=== PATIENT | female | born 2000 | race Caucasian/White ===

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

== ENCOUNTER 2018-07-11 09:45 | Emergency (ER) | payer OTHER ==
--- NOTE | 2018-07-11 10:30 | ER Document Report ---
ED GI/ - General Chief Complaint: Abdominal Pain Stated Complaint: STOMACH PAIN Time Seen by Provider: 07/11/18 10:26 Notes: Chief complaint: Epigastric pain History of complain:( obtained from----patient) 18 years old female woke up this morning with burning sensation in the epigastric region which was 10/10 in intensity by the time she came to the ER it has subsided to 3/10. By the time I spoke to her she states is 1/10. She ate [employer] last night before going to bed. Currently has no nausea vomiting fever chills or other constitutional symptoms denies any constipation. Denies any dysuria frequency urgency. She is not sure whether she is or not. Has had no similar incident before Onset: As described above Duration: Since this morning Severity: Mild Quality: Burning Context: Oily food Exacerbating factor and relieving factors: Unknown REVIEW OF SYSTEMS: CONSTITUTIONAL : Denies fever, chills, or sweats. Denies recent illness. EENT: Denies eye, ear, throat, or mouth pain or symptoms. Denies nasal or sinus congestion or discharge. Denies throat, tongue, or mouth swelling or difficulty swallowing. CARDIOVASCULAR: Denies chest pain. Denies palpitations or racing or irregular heart beat. Denies ankle edema. RESPIRATORY: Denies cough, cold, or chest congestion. Denies shortness of breath, difficulty breathing, or wheezing. GASTROINTESTINAL: Denies distention. Denies nausea, vomiting, or diarrhea. Denies blood in vomitus, stools, or per rectum. Denies black, tarry stools. Denies constipation. GENITOURINARY: Denies difficulty urinating, painful urination, burning, frequency, blood in urine, or discharge. FEMALE GENITOURINARY: Denies vaginal bleeding, heavy or abnormal periods, irregular periods. Denies vaginal discharge or odor. MUSCULOSKELETAL: Denies back or neck pain or stiffness. Denies joint pain or swelling. SKIN: Denies rash, lesions or sores. HEMATOLOGIC : Denies easy bruising or bleeding. LYMPHATIC: Denies swollen, enlarged glands. NEUROLOGICAL: Denies confusion or altered mental status. Denies passing out or loss of consciousness. Denies dizziness or lightheadedness. Denies headache. Denies weakness or paralysis or loss of use of either side. Denies problems with gait or speech. Denies sensory loss, numbness, or tingling. Denies seizures. PSYCHIATRIC: Denies anxiety or stress. Denies depression, suicidal ideation, or homicidal ideation. ALL OTHER SYSTEMS REVIEWED AND NEGATIVE. PHYSICAL EXAMINATION: GENERAL: Well-appearing, well-nourished and in no acute distress. HEAD: Atraumatic, normocephalic. EYES: Pupils equal round and reactive to light, extraocular movements intact, conjunctiva are normal. ENT: Nares patent, oropharynx clear without exudates. Moist mucous membranes. NECK: Normal range of motion, supple without lymphadenopathy LUNGS: Breath sounds clear to auscultation bilaterally and equal. No wheezes rales or rhonchi. HEART: Regular rate and rhythm without murmurs ABDOMEN: Soft, nontender, nondistended abdomen. No guarding, no rebound. No masses appreciated. No tenderness over the right upper quadrant noted Examination of genitals-deferred Musculoskeletal: Normal range of motion, no pitting or edema. No cyanosis. NEUROLOGICAL: Cranial nerves grossly intact. Normal speech, normal gait. Normal sensory, motor exams PSYCH: Normal mood, normal affect. SKIN: Warm, Dry, normal turgor, no rashes or lesions noted. Dictation was performed using [employer] voice recognition software TRAVEL OUTSIDE OF THE [place] IN LAST 30 DAYS: No - HPI Notes: 07/11/18 10:28 Dictated - Related Data Allergies/Adverse Reactions: No Known Allergies Allergy (Unverified 03/31/17 07:33) Past Medical History - General Information source: Patient - Social History Smoking Status: Never Smoker Chew tobacco use (# tins/day): No Frequency of alcohol use: None Drug Abuse: None Lives with: Family Family History: Reviewed & Not Pertinent Patient has suicidal ideation: No Patient has homicidal ideation: No Renal/ Medical History: Denies: Hx Peritoneal Dialysis Psychiatric Medical History: Reports: Hx Depression - Immunizations Hx Diphtheria, Pertussis, Tetanus Vaccination: Yes Review of Systems - Review of Systems Notes: Dictated Physical Exam - Vital signs Vitals: Temp Pulse Resp BP Pulse Ox 98.1 F 76 18 128/67 H 98 07/11/18 09:54 07/11/18 09:54 07/11/18 09:54 07/11/18 09:54 07/11/18 09:54 - Notes Notes: Dictated Course - Vital Signs Vital signs: Temp Pulse Resp BP Pulse Ox 98.1 F 76 18 128/67 H 98 07/11/18 09:54 07/11/18 09:54 07/11/18 09:54 07/11/18 09:54 07/11/18 09:54 - Laboratory Laboratory results interpreted by me: 07/11/18 10:26 Urine Protein 30 H Urine Ketones 80 H Urine Urobilinogen 2.0 H Urine HCG, Qual POSITIVE H Discharge - Discharge Clinical Impression: GERD (gastroesophageal reflux disease) Qualifiers: Esophagitis presence: without esophagitis Qualified Code(s): K21.9 - Gastro- esophageal reflux disease without esophagitis Qualifiers: Weeks of gestation: less than 8 weeks Qualified Code(s): Z3A.01 - Less than 8 weeks gestation of Condition: Fair Disposition: HOME, SELF-CARE Instructions: Abdominal Pain ([facility]), Reflux Disease (GERD) ([facility]), ([facility] )
[2018-07-11 11:18] LABS: APPEARANCE,URINE SLIGHTLY-CLOUDY; BILIRUBIN,URINE NEGATIVE (NEGATIVE); COLOR,URINE YELLOW; GLUCOSE, URINE NEGATIVE (NEGATIVE); KETONES,URINE 80 mg/dL (NEGATIVE); LEUKOCYTE ESTERASE,URINE NEGATIVE (NEGATIVE); NITRITE,URINE NEGATIVE (NEGATIVE); PROTEIN,URINE 30 mg/dL (NEGATIVE); URINE SPECIFIC GRAVITY 1.031
[2018-07-11 11:32] VITALS: BP 115/79
== END 2018-07-11 11:43 | disposition home or self-care (01) ==
LOC: ER 09:45
DX: O26.91 Pregnancy related conditions, unspecified, first trimester (principal); K21.9 Gastro-esophageal reflux disease without esophagitis; R10.13 Epigastric pain; Z3A.01 Less than 8 weeks gestation of pregnancy
CPT/HCPCS: 36415; 81001; 81025; 84702; 99284

== ENCOUNTER → 2018-08-23 | Outpatient (CLI) | payer OTHER, MEDICAID | LOC: OD 11:22 | PROVIDERS: ATTEND Midwife | DX: Z36.0 Encounter for antenatal screening for chromosomal anomalies (principal) | CPT/HCPCS: 36415; 81241 ==

== ENCOUNTER 2018-12-24 14:50 | Emergency (ER) | payer OTHER, MEDICAID ==
[2018-12-24] MEDS ORDERED: NORMAL SALINE 1000 ML 1,000 ML IV ONE (15:41)
--- NOTE | 2018-12-24 15:43 | ER Document Report ---
ED Medical Screen (RME) - General Chief Complaint: Palpitations Stated Complaint: LIGHT HEADED, FAST HEART BEAT Time Seen by Provider: 12/24/18 15:36 Primary Care Provider: HALI GOLD CNM [Primary Care Provider] - Follow up as needed TRAVEL OUTSIDE OF THE [place] IN LAST 30 DAYS: No - HPI Patient complains to provider of: Shortness of breath Notes: 12/24/18 15:41 Patient is a 18-year-old female who is currently approximately 28 weeks , resenting to the emergency department complaining of shortness of breath with the feeling that she cannot take a deep enough breath, she denies any pain with deep breathing or chest pain, but also feels lightheaded and as though her heart is racing Patient's EKG notes tachycardia at a rate of 106, she has no calf tenderness on palpation, negative Homans sign, she does report having upper respiratory symptoms with a productive cough for the past week, she is a non-smoker 12/24/18 15:43 RAPID MEDICAL EVALUATION DISCLOSURE I have seen this patient as part of a Rapid Medical Evaluation and, if applicable, placed any initially appropriate orders. The patient will be seen and fully evaluated, including a full history and physical exam, by a provider (in Main ED or Fast Track) when a room becomes available. - Related Data Allergies/Adverse Reactions: No Known Allergies Allergy (Verified 12/24/18 15:33) Past Medical History Renal/ Medical History: Denies: Hx Peritoneal Dialysis Psychiatric Medical History: Reports: Hx Depression - Immunizations Hx Diphtheria, Pertussis, Tetanus Vaccination: Yes Physical Exam - Vital signs Vitals: Temp Pulse Resp BP Pulse Ox 98.2 F 111 H 16 132/80 H 99 12/24/18 14:54 12/24/18 14:54 12/24/18 14:54 12/24/18 14:54 12/24/18 14:54 Course - Vital Signs Vital signs: Temp Pulse Resp BP Pulse Ox 98.2 F 111 H 16 132/80 H 99 12/24/18 14:54 12/24/18 14:54 12/24/18 14:54 12/24/18 14:54 12/24/18 14:54 Doctor's Discharge - Discharge Referrals: HALI GOLD CNM [Primary Care Provider] - Follow up as needed
--- NOTE | 2018-12-24 16:00 | EKG REPORT ---
SEVERITY:- BORDERLINE ECG - SINUS TACHYCARDIA BORDERLINE T ABNORMALITIES, ANTERIOR LEADS : Confirmed by: Carlos David MD 24-Dec-2018 15:59:23
--- NOTE | 2018-12-24 16:31 | RADIOLOGY REPORT (SQ) ---
EXAM DESCRIPTION: CHEST 2 VIEWS COMPLETED DATE/TIME: 12/24/2018 4:05 pm REASON FOR STUDY: sob COMPARISON: None. EXAM PARAMETERS: NUMBER OF VIEWS: two views TECHNIQUE: Digital Frontal and Lateral radiographic views of the chest acquired. RADIATION DOSE: NA LIMITATIONS: none FINDINGS: LUNGS AND PLEURA: No focal airspace disease, pleural effusion or pneumothorax. MEDIASTINUM AND HILAR STRUCTURES: No masses or contour abnormalities. HEART AND VASCULAR STRUCTURES: Normal heart size. BONES: No acute findings. HARDWARE: 5 mm circular metallic density overlies the posterior left hemithorax, etiology uncertain. OTHER: No other significant finding. IMPRESSION: 5 mm circular metallic density overlies the posterior left hemithorax, etiology uncertai n. No pneumothorax or other additional evidence of acute cardiopulmonary process. TECHNICAL DOCUMENTATION: JOB ID: [id number] [employer]- All Rights Reserved Reading location - IP/workstation name: [email or web address]
[2018-12-24 16:48] LABS: HEMOGLOBIN 12.5 g/dL (12.0-15.5); MEAN CORPUSCULAR HEMOGLOBIN 28.9 pg (27.0-33.4); MEAN CORPUSCULAR HGB CONC 33.8 g/dL (32.0-36.0); MEAN CORPUSCULAR VOLUME 86 fl (80-97); PLATELET COUNT 242 10^3/uL (150-450); RED BLOOD COUNT 4.33 10^6/uL (3.72-5.28); RED CELL DISTRIBUTION WIDTH 14.1 % (11.5-14.0); WHITE BLOOD COUNT 9.5 10^3/uL (4.0-10.5)
[2018-12-24 17:01] LABS: ALANINE AMINOTRANSFERASE 50 U/L (9-52); ALBUMIN 4.2 g/dL (3.5-5.0); ALKALINE PHOSPHATASE 125 U/L (38-126); ANION GAP 13 (5-19); ASPARTATE AMINO TRANSFERASE 26 U/L (14-36); BILIRUBIN,DIRECT 0.2 mg/dL (0.0-0.4); BILIRUBIN,TOTAL 0.7 mg/dL (0.2-1.3); BLOOD UREA NITROGEN 9 mg/dL (7-20); CARBON DIOXIDE 20 mmol/L (22-30); CHLORIDE 103 mmol/L (98-107); GLUCOSE 78 mg/dL (75-110); POTASSIUM 4.3 mmol/L (3.6-5.0); TOTAL PROTEIN 7.2 g/dL (6.3-8.2)
[2018-12-24 17:07] LABS: ABSOLUTE LYMPHOCYTES# (MANUAL) 0.5 10^3/uL (0.5-4.7); ABSOLUTE MONOCYTES # (MANUAL) 1.3 10^3/uL (0.1-1.4); ABSOLUTE NEUTROPHILS# (MANUAL) 7.5 10^3/uL (1.7-8.2); BAND NEUTROPHILS % (MANUAL) 2 % (3-5); BASOPHILS % (MANUAL) 0 % (0-2); EOSINOPHILS % (MANUAL) 2 % (0-6); LYMPHOCYTES % (MANUAL) 5 % (13-45); MONOCYTES % (MANUAL) 14 % (3-13); SEGMENTED NEUTROPHILS % (MAN) 77 % (42-78); TOTAL CELLS COUNTED 100
[2018-12-24 17:08] LABS: ANISOCYTOSIS SLIGHT; PLATELET COMMENT ADEQUATE; PLATELET LARGE PRESENT; TOXIC VACUOLATION PRESENT
[2018-12-24 17:10] LABS: POLYCHROMASIA SLIGHT
--- NOTE | 2018-12-24 21:12 | ER Document Report ---
ED Cardiac - General Chief Complaint: Palpitations Stated Complaint: LIGHT HEADED, FAST HEART BEAT Time Seen by Provider: 12/24/18 15:36 Primary Care Provider: HALI GOLD CNM [CERTIFIED NURSE TEMPERATURE INSPECTOR] - Follow up as needed Mode of Arrival: Ambulatory Information source: Patient TRAVEL OUTSIDE OF THE [place] IN LAST 30 DAYS: No - HPI Patient complains to provider of: Other - Shortness of breath, 28 weeks which started to worsen today, no appreciable chest pain, no abdominal pain, denies diarrhea constipation dysuria rashes or other symptoms. - Related Data Allergies/Adverse Reactions: No Known Allergies Allergy (Verified 12/24/18 15:33) Past Medical History - General Information source: Patient - Social History Smoking Status: Never Smoker Frequency of alcohol use: None Drug Abuse: None Family History: Reviewed & Not Pertinent Patient has suicidal ideation: No Patient has homicidal ideation: No Renal/ Medical History: Denies: Hx Peritoneal Dialysis Psychiatric Medical History: Reports: Hx Depression - Immunizations Hx Diphtheria, Pertussis, Tetanus Vaccination: Yes Review of Systems - Review of Systems -: Yes All other systems reviewed and negative Physical Exam - Vital signs Vitals: Temp Pulse Resp BP Pulse Ox 98.2 F 111 H 16 132/80 H 99 12/24/18 14:54 12/24/18 14:54 12/24/18 14:54 12/24/18 14:54 12/24/18 14:54 - General General appearance: Appears well In distress: None - HEENT Head: Normocephalic Eyes: Normal Conjunctiva: Normal Cornea: Normal Extraocular movements intact: Yes Eyelashes: Normal Pupils: PERRL - Respiratory Respiratory status: No respiratory distress Chest status: Nontender Breath sounds: Normal Chest palpation: Normal - Cardiovascular Rhythm: Regular Heart sounds: Normal auscultation Murmur: No - Abdominal Inspection: Gravid female, Obese Distension: No distension Tenderness: Nontender - Back Back: Normal, Nontender - Extremities General upper extremity: Normal inspection, Nontender, Normal color, Normal ROM, Normal temperature General lower extremity: Normal inspection, Nontender, Normal color, Normal ROM, Normal temperature, Normal weight bearing. No: Jeremiah's sign - Neurological Neuro grossly intact: Yes Cognition: Normal Orientation: AAOx4 Sean Coma Scale Eye Opening: Spontaneous Sean Coma Scale Verbal: Oriented [place] Coma Scale Motor: Obeys Commands Sean Coma Scale Total: 15 Speech: Normal Motor strength normal: LUE, RUE, LLE, RLE Sensory: Normal - Psychological Associated symptoms: Normal affect, Normal mood Course - Re-evaluation Re-evalutation: 12/25/18 04:21 18-year-old female who is currently 28 weeks that presents for shortness of breath. Through triage she underwent labs as well as x-ray of the chest which is not demonstrate any obvious cause for her underlying shortness of breath, she is at risk for potential pulmonary embolism given that she is persistently tachycardic without any other obvious symptoms to suggest another cause. We will plan for CTA of the chest. CT of the chest does not demonstrate any acute pulmonary embolism. Believe that the patient is likely safe for discharge with return precautions and expectant management at this time as I do not believe that she has more serious underlying cause of her shortness of breath and fatigue such as but not limited to pulmonary embolism, CVA, [place], heart failure. - Vital Signs Vital signs: Temp Pulse Resp BP Pulse Ox 98.2 F 111 H 22 H 128/81 H 98 12/24/18 14:54 12/24/18 14:54 12/24/18 22:12 12/24/18 22:12 12/24/18 22:12 - Laboratory Result Diagrams: 12/24/18 16:24 12/24/18 16:24 Laboratory results interpreted by me: 12/24/18 12/24/18 12/24/18 16:24 16:24 16:24 RDW 14.1 H Band Neutrophils % 2 L Lymphocytes % (Manual) 5 L Monocytes % (Manual) 14 H D-Dimer 1.38 H Sodium 136.0 L Carbon Dioxide 20 L Creatinine 0.47 L Discharge - Discharge Clinical Impression: Shortness of breath URI (upper respiratory infection) Qualifiers: URI type: unspecified URI Qualified Code(s): J06.9 - Acute upper respiratory infection, unspecified Qualifiers: Weeks of gestation: 28 weeks Qualified Code(s): Z3A.28 - 28 weeks gestation of Condition: Good Disposition: HOME, SELF-CARE Instructions: Upper Respiratory Illness ([facility]), Viral Syndrome ([facility]) Additional Instructions: You were seen today in the emergency department for your shortness of breath. You had evaluation including a physical exam, blood tests, a CT scan of your lungs to see if there were any blood clots. There are no blood clots in your lungs. There is been no damage to your heart identified. You had a normal chest x-ray. I think that you are feeling sick from a developing respiratory infection. Follow-up with your primary wind energy technician in the coming week. Referrals: HALI GOLD CNM [CERTIFIED NURSE TEMPERATURE INSPECTOR] - Follow up as needed
--- NOTE | 2018-12-24 21:27 | RADIOLOGY REPORT (SQ) ---
CT CHEST ANGIOGRAPHY WITHOUT THEN WITH IV CONTRAST HISTORY: Shortness of breath. COMPARISON: None. TECHNIQUE: CT angiogram of the chest with IV contrast. 3-D MIP images were obtained in coronal and sagittal reconstructions. This exam was performed according to our departmental dose-optimization program, which includes automated exposure control, adjustment of the mA and/or kV according to patient size and/or use of iterative reconstruction technique. FINDINGS: No acute pulmonary embolism is seen in the main or segmental branches. There is a subcentimeter hypodense nodule in the right thyroid lobe. No mediastinal or axillary adenopathy. The heart size is normal without pericardial effusion. The lungs are clear without pleural effusions or pneumothorax. The visualized upper abdomen demonstrates no acute findings. No acute osseous findings are appreciated. IMPRESSION: 1. No acute pulmonary embolism. 2. Clear lungs. 3. Subcentimeter incidental thyroid nodule. No follow-up imaging is recommended. (Reference: J Am Lisa Radiol. 2015 b;12(2): 143-50)
[2018-12-24 22:28] VITALS: BP 128/81
== END 2018-12-24 22:28 | disposition home or self-care (01) ==
LOC: ER 14:50
DX: O98.813 Other maternal infectious and parasitic diseases complicating pregnancy, third trimester (principal); J06.9 Acute upper respiratory infection, unspecified; R00.2 Palpitations; R42 Dizziness and giddiness; R06.02 Shortness of breath; Z3A.28 28 weeks gestation of pregnancy
CPT/HCPCS: 93005; 99285; 96360; 96361; 36415; 87040; 85025; 80053; 85379; 71046; 71275; 93010; J7030

== ENCOUNTER 2019-02-12 19:58 | Outpatient (CLI) | payer OTHER, MEDICAID ==
[2019-02-12 20:56] LABS: APPEARANCE,URINE TURBID; BILIRUBIN,URINE NEGATIVE (NEGATIVE); COLOR,URINE YELLOW; GLUCOSE, URINE 50 mg/dL (NEGATIVE); KETONES,URINE NEGATIVE (NEGATIVE); LEUKOCYTE ESTERASE,URINE NEGATIVE (NEGATIVE); NITRITE,URINE NEGATIVE (NEGATIVE); PROTEIN,URINE NEGATIVE (NEGATIVE); URINE SPECIFIC GRAVITY 1.018; UROBILINOGEN,URINE NEGATIVE mg/dL (<2.0)
[2019-02-12 21:07] LABS: URINE AMPHETAMINES SCREEN NEGATIVE; URINE BARBITURATES SCREEN NEGATIVE; URINE BENZODIAZEPINES SCREEN NEGATIVE; URINE COCAINE SCREEN NEGATIVE; URINE MARIJUANA (THC) SCREEN NEGATIVE; URINE METHADONE SCREEN NEGATIVE; URINE PHENCYCLIDINE SCREEN NEGATIVE
== END 2019-02-12 21:00 | disposition home or self-care (01) ==
LOC: LC 19:58
PROVIDERS: ATTEND Obstetrics & Gynecology
PROC: 4A1HXCZ Monitoring of Products of Conception, Cardiac Rate, External Approach (ICD-10-PCS; principal; 2019-02-12)
DX: O47.03 False labor before 37 completed weeks of gestation, third trimester (principal); Z3A.36 36 weeks gestation of pregnancy
CPT/HCPCS: 80307; 81001

== ENCOUNTER 2019-02-25 21:57 | Outpatient (CLI) | payer OTHER, MEDICAID ==
[2019-02-25 22:45] LABS: APPEARANCE,URINE CLEAR; BILIRUBIN,URINE NEGATIVE (NEGATIVE); COLOR,URINE YELLOW; GLUCOSE, URINE NEGATIVE (NEGATIVE); KETONES,URINE NEGATIVE (NEGATIVE); LEUKOCYTE ESTERASE,URINE NEGATIVE (NEGATIVE); NITRITE,URINE NEGATIVE (NEGATIVE); PROTEIN,URINE NEGATIVE (NEGATIVE); URINE SPECIFIC GRAVITY 1.011; UROBILINOGEN,URINE NEGATIVE mg/dL (<2.0)
[2019-02-25 23:14] LABS: URINE AMPHETAMINES SCREEN NEGATIVE; URINE BARBITURATES SCREEN NEGATIVE; URINE BENZODIAZEPINES SCREEN NEGATIVE; URINE COCAINE SCREEN NEGATIVE; URINE MARIJUANA (THC) SCREEN NEGATIVE; URINE METHADONE SCREEN NEGATIVE; URINE PHENCYCLIDINE SCREEN NEGATIVE
--- NOTE | 2019-02-25 23:49 | Non Stress Test Report ---
Non Stress Test Datetime Report Generated by CPN: 02/25/2019 23:49 DEMOGRAPHIC Test Number: 2 EGA NST: 38.0 EGA NST: 36.1 INDICATION Indication for Study: Ordered by Provider Indication for Study: Ordered by Provider MONITORING Monitor Explained: Monitor Explained; Test Explained; Patient Verbalized Understanding Time on Monitor: 02/25/2019 22:15 Time on Monitor: 02/12/2019 20:26 Time off Monitor: 02/25/2019 22:51 Time off Monitor: 02/12/2019 21:13 NST Duration: 36 NST Duration: 47 NST INTERVENTIONS NST Interventions: PO Hydration; Reposition Patient NST Interventions: None Physician Notified NST: Dr. Almeida Physician Notified NST: Dr. Quinonez BABY A: [id number] BABY A Movement : Present Movement : Present Contraction Frequency : 1-3 Contraction Frequency : 2-3 FHR Baseline : 125 FHR Baseline : 125 Accelerations : 15X15 Accelerations : 15X15 Decelerations : None Decelerations : None Variability : Moderate 6-25bpm Variability : Minimal - Undetectable to <=5bpm NST Review: Meets Criteria for Reactive NST NST Review: Meets Criteria for Reactive NST NST Review and Verified By : BRAD Vang NST Review and Verified By : Valente Faustin RN NST Results: Reactive NST Results: Reactive NST REPORT Report Trigger: Send Report
[2019-02-26] MEDS ORDERED: HYDROXYZINE PAMOATE 50 MG CAPSULE PO ONE (00:03)
[2019-02-26] MEDS ORDERED: HYDROXYZINE PAMOATE 50 MG CAPSULE ONE (00:05)
== END 2019-02-26 00:20 | disposition home or self-care (01) ==
LOC: LC 21:57
PROVIDERS: ATTEND Obstetrics & Gynecology
PROC: 4A1HXCZ Monitoring of Products of Conception, Cardiac Rate, External Approach (ICD-10-PCS; principal; 2019-02-25)
DX: O47.1 False labor at or after 37 completed weeks of gestation (principal); Z3A.38 38 weeks gestation of pregnancy
CPT/HCPCS: 59025; 80307; 81005

== ENCOUNTER 2019-03-17 07:29 | Outpatient (CLI) | payer OTHER, MEDICAID ==
--- NOTE | 2019-03-17 08:15 | Non Stress Test Report ---
Non Stress Test Datetime Report Generated by CPN: 03/17/2019 08:15 DEMOGRAPHIC Test Number: 4 EGA NST: 40.6 INDICATION Indication for Study: Ordered by Provider MONITORING Monitor Explained: Monitor Explained; Test Explained; Patient Verbalized Understanding Time on Monitor: 03/17/2019 07:43 Time off Monitor: 03/17/2019 08:05 NST Duration: 22 NST INTERVENTIONS NST Interventions: PO Hydration; Reposition Patient Physician Notified NST: Blossom Masterson CNM BABY A: [id number] BABY A Movement : Present Contraction Frequency : 4-5 FHR Baseline : 135 Accelerations : 15X15 Decelerations : None Variability : Moderate 6-25bpm NST Review: Meets Criteria for Reactive NST NST Review and Verified By : Nikole ATKINS RN NST Results: Reactive NST REPORT Report Trigger: Send Report
[2019-03-17 08:29] LABS: APPEARANCE,URINE CLOUDY; BILIRUBIN,URINE NEGATIVE (NEGATIVE); COLOR,URINE YELLOW; GLUCOSE, URINE NEGATIVE (NEGATIVE); KETONES,URINE TRACE mg/dL (NEGATIVE); LEUKOCYTE ESTERASE,URINE TRACE (NEGATIVE); NITRITE,URINE NEGATIVE (NEGATIVE); PROTEIN,URINE 100 mg/dL (NEGATIVE); URINE SPECIFIC GRAVITY 1.025; UROBILINOGEN,URINE NEGATIVE mg/dL (<2.0)
[2019-03-17 08:47] LABS: URINE AMPHETAMINES SCREEN NEGATIVE; URINE BARBITURATES SCREEN NEGATIVE; URINE BENZODIAZEPINES SCREEN NEGATIVE; URINE COCAINE SCREEN NEGATIVE; URINE MARIJUANA (THC) SCREEN NEGATIVE; URINE METHADONE SCREEN NEGATIVE; URINE PHENCYCLIDINE SCREEN NEGATIVE
[2019-03-17] MEDS ORDERED: RINGERS SOLUTION,LACTATED 1,000 ML IV ONE (18:34)
[2019-03-17] MEDS ORDERED: RINGERS SOLUTION,LACTATED 1,000 ML IV PRN (18:34)
[2019-03-17] MEDS ORDERED: PENICILLIN G POTASSIUM 5,000,000 UNIT in DEXTROSE 5%-WATER 100 ML IV ONE (18:34)
[2019-03-17] MEDS ORDERED: DINOPROSTONE 10 MG VAGINAL INSERT.SR PV PRN (18:36)
[2019-03-17 19:10] LABS: URINE AMPHETAMINES SCREEN NEGATIVE; URINE BARBITURATES SCREEN NEGATIVE; URINE BENZODIAZEPINES SCREEN NEGATIVE; URINE COCAINE SCREEN NEGATIVE; URINE MARIJUANA (THC) SCREEN NEGATIVE; URINE METHADONE SCREEN NEGATIVE; URINE PHENCYCLIDINE SCREEN NEGATIVE
[2019-03-17 19:17] LABS: ABSOLUTE LYMPHOCYTES (AUTO) 1.4 10^3/uL (0.5-4.7); ABSOLUTE MONOCYTES (AUTO) 0.7 10^3/uL (0.1-1.4); ABSOLUTE NEUT (AUTO) 12.9 10^3/uL (1.7-8.2); BASOPHILS % (AUTO) 0.3 % (0-2); EOSINOPHILS % (AUTO) 0.2 % (0-6); HEMATOCRIT 35.9 % (36.0-47.0); HEMOGLOBIN 12.1 g/dL (12.0-15.5); LYMPHOCYTES % (AUTO) 9.1 % (13-45); MEAN CORPUSCULAR HEMOGLOBIN 28.1 pg (27.0-33.4); MEAN CORPUSCULAR HGB CONC 33.7 g/dL (32.0-36.0); MEAN CORPUSCULAR VOLUME 83 fl (80-97); MONOCYTES % (AUTO) 4.6 % (3-13); PLATELET COUNT 225 10^3/uL (150-450); RED BLOOD COUNT 4.31 10^6/uL (3.72-5.28); RED CELL DISTRIBUTION WIDTH 19.6 % (11.5-14.0); SEGMENTED NEUTROPHILS % (AUTO) 85.8 % (42-78); TOTAL CELLS COUNTED % (AUTO) 100 %
[2019-03-17] MEDS ORDERED: PENICILLIN G POTASSIUM 2,500,000 UNIT in DEXTROSE 5%-WATER 50 ML IV SCH (22:36)
[2019-03-18] MEDS ORDERED: OXYTOCIN/NORMAL SALINE 20 UNIT/1,000 ML RTUINJ IV PRN (08:00)
== END 2019-03-17 09:46 | disposition home or self-care (01) ==
LOC: LC 07:29
PROVIDERS: ATTEND Obstetrics & Gynecology
PROC: 4A1HXCZ Monitoring of Products of Conception, Cardiac Rate, External Approach (ICD-10-PCS; principal; 2019-03-17)
DX: O47.1 False labor at or after 37 completed weeks of gestation (principal); O48.0 Post-term pregnancy; Z3A.40 40 weeks gestation of pregnancy
CPT/HCPCS: 36415; 59025; 80307; 81005; 85025; 86592

== ENCOUNTER 2019-03-17 18:06 | Inpatient (IN) | payer OTHER, MEDICAID ==
[2019-03-17] MEDS ORDERED: PENICILLIN G-K 5 MILLION UNIT VIAL ONE ×2 (18:48→22:36)
[2019-03-17] MEDS ORDERED: PENICILLIN G POTASSIUM 5,000,000 UNIT in DEXTROSE 5%-WATER 100 ML IV ONE (19:39)
[2019-03-17] MEDS ORDERED: RINGERS SOLUTION,LACTATED 1,000 ML IV ONE (19:39)
[2019-03-17] MEDS: RINGERS SOLUTION,LACTATED 1,000 ML IV PRN ×2 (19:51→23:00)
[2019-03-17] MEDS ORDERED: MISOPROSTOL 0.2 MG TABLET ONE (19:59)
[2019-03-17] MEDS ORDERED: LIDOCAINE 1% INJ-PF (10 MG/ML) 30 ML SDV ONE (20:00)
[2019-03-17] MEDS ORDERED: OXYTOCIN/NORMAL SALINE 20 UNIT/1,000 ML RTUINJ ONE (20:00)
[2019-03-17] MEDS ORDERED: BUPIVACAINE HCL 0.25 % INJ/PF (2.5 MG/1 ML) 30 ML VIAL ONE ×2 (20:48→21:49)
[2019-03-17] MEDS ORDERED: EPHEDRINE SULFATE INJ 50 MG/1 ML AMPULE ONE (20:48)
[2019-03-17] MEDS ORDERED: FENTANYL/BUPIVACAINE/NS/PF 0 MCG/0 ML RTUINJ EPI ONE (20:48)
[2019-03-17] MEDS ORDERED: BUPIVACAINE HCL/NS/PF 0 MG/0 ML RTUINJ EPI ONE (21:49)
[2019-03-17] MEDS ORDERED: FENTANYL/BUPIVACAINE/NS/PF 300 MCG/150 ML RTUINJ EPI ONE (21:49)
--- NOTE | 2019-03-17 22:27 | Admission Physical ---
Datetime Report Generated by CPN: 03/17/2019 22:27 CURRENT ADMISSION Chief Complaint: Uterine Contractions; Suspected Ruptured Membranes Indication for Induction: Not Applicable Admit Impression : Term, Intrauterine Admit Plan: Admit to Unit ALLERGIES Medication Allergies: No Medication Allergies: No Known Allergies (03/17/2019) Latex: No Latex Allergies OBSTETRICAL HISTORY EDC: 03/11/2019 00:00 : 1 Para: 0 Term: 0 : 0 SAB: 0 IAB: 0 Ectopic: 0 Livin Cesareans: 0 VBACs: 0 Multiple Births: 0 Gestational Diabetes: Yes Rh Sensitization: No Incompetent Cervix: No EFFIE: No Infertility: No ART Treatment: No Uterine Anomaly: No IUGR: No Hx Previous C/S: No Macrosomia: No Hx Loss/Stillborn: No PIH: No Hx : No Placenta Previa/Abruption: No Depression/PP Depression: No PTL/PROM: No Post Hemorrhage: No Current Procedures: Ultrasound Obstetrical History Comments: G1-current GDM A1 SEE RECORDS Alcohol: No Marijuana : No Cocaine: No Other Illicit Drugs: No Cigarettes: Never Smoker. [id number] MEDICAL HISTORY Diabetes: Yes Diabetes Type: Gestational Diabetes Blood Transfusion: No Pulmonary Disease (Asthma, TB): No Breast Disease: No Hypertension: No Financial Investment Manager Surgery: No Heart Disease: No Hosp/Surgery: No Autoimmune Disorder: No Anesthetic Complications: No Kidney Disease: No Abnormal Pap Smear: No Neuro/Epilepsy: No Psychiatric Disorders: No Other Medical Diseases: No Hepatitis/Liver Disease: No Significant Family History: No Varicosities/Phlebitis: No Trauma/Violence : No Thyroid Dysfunction: No Medical History Comments: PCOS INFECTIOUS HISTORY Gonorrhea: No Genital Herpes: No Chlamydia: No Tuberculosis: No Syphilis: No Hepatitis: No HIV/AIDS Exposure: No Rash or Viral Illness: No HPV: No PHYSICAL EXAM General: Normal HEENT: Normal Neurologic: Normal Thyroid: Normal Heart: Normal Lungs: Normal Breast: Deferred Back: Normal Abdomen: Normal Genitourinary Exam: Normal Extremities: Normal DTRs: Normal Pelvic Type: Adequate Vital Signs: Reviewed VAGINAL EXAM Dilatation: 5 Effacement: 90 Station: -1 MEMBRANES Pooling: Negative Membranes: Intact FETUS A EGA: 40.6 Monitoring: External US FHR- Baseline: 120 Variability: Moderate 6-25bpm Decelerations: None FHR Category: Category I Presentation: Vertex PLANS FOR LABOR AND DELIVERY Labor and Delivery: Plan Pain Management: Epidural Feeding Preference: Breast Benefit of Breast Feed Discussed: Yes Circumcision: N/A INFORMED CONSENT Signature: with User ID: [email or web address]
[2019-03-17] MEDS ORDERED: MAG HYDROX/AL HYDROX/SIMETH SUSP 30 ML UDCUP ONE (22:36)
[2019-03-17] MEDS: PENICILLIN G POTASSIUM 2,500,000 UNIT in DEXTROSE 5%-WATER 50 ML IV SCH (23:00)
[2019-03-17] MEDS ORDERED: MAG HYDROX/AL HYDROX/SIMETH SUSP 30 ML UDCUP PO ONE (23:10)
[2019-03-18] MEDS ORDERED: ONDANSETRON HCL INJ/PF 4 MG/2 ML SDV ONE (00:45)
[2019-03-18] MEDS ORDERED: ONDANSETRON HCL INJ/PF 4 MG/2 ML SDV IV ONE (01:30)
[2019-03-18] MEDS ORDERED: PENICILLIN G-K 5 MILLION UNIT VIAL ONE (02:40)
[2019-03-18] MEDS: PENICILLIN G POTASSIUM 2,500,000 UNIT in DEXTROSE 5%-WATER 50 ML IV SCH ×5 (02:45→20:41)
[2019-03-18] MEDS: RINGERS SOLUTION,LACTATED 1,000 ML IV PRN (04:11)
[2019-03-18] MEDS ORDERED: DIPHENHYDRAMINE HCL 25 MG CAPSULE PO PRN (05:24)
[2019-03-18] MEDS ORDERED: DIPH/PERTUSS(ACELL)/TETANUS VAC/PF 0.5 ML SYR (>=10YO) IM PRN (05:24)
[2019-03-18] MEDS ORDERED: PROMETHAZINE HCL INJ 25 MG/1 ML VIAL IV PRN (05:24)
[2019-03-18] MEDS ORDERED: MAGNESIUM HYDROXIDE SUSP 30 ML UDCUP PO PRN (05:24)
[2019-03-18] MEDS ORDERED: ACETAMINOPHEN WITH CODEINE #3 TABLET PO PRN (05:24)
[2019-03-18] MEDS ORDERED: NA PHOS,M-B/NA PHOS,DI-BA (ADULT) 133 ML ENEMA PR PRN (05:24)
[2019-03-18] MEDS ORDERED: ACETAMINOPHEN 650 MG SUPP.RECT PR PRN (05:24)
[2019-03-18] MEDS ORDERED: PROMETHAZINE HCL 25 MG TABLET PO PRN (05:24)
[2019-03-18] MEDS ORDERED: ZOLPIDEM TARTRATE 5 MG TABLET PO PRN (05:24)
[2019-03-18] MEDS ORDERED: GLYCERIN/WITCH HAZEL LEAF 1 EACH MED..PAD TP PRN (05:24)
[2019-03-18] MEDS ORDERED: PROMETHAZINE HCL 25 MG SUPP.RECT PR PRN (05:24)
[2019-03-18] MEDS ORDERED: OXYTOCIN/NORMAL SALINE 20 UNIT/1,000 ML RTUINJ IV PRN (05:24)
[2019-03-18] MEDS ORDERED: DIBUCAINE 1% OINTMENT 56 GM TP PRN (05:24)
[2019-03-18] MEDS ORDERED: BENZOCAINE/MENTHOL AEROSOL SPRAY 56 ML TOP PRN (05:24)
[2019-03-18] MEDS ORDERED: MEASLES,MUMPS&RUBELLA VACC/PF 0.5 ML VIAL SUBCUT PRN (05:24)
[2019-03-18] MEDS ORDERED: PSEUDOEPHEDRINE HCL 30 MG TABLET PO PRN (05:24)
--- NOTE | 2019-03-18 06:50 | Delivery Summary ---
Del Sum A-C Datetime Report Generated by CPN: 03/18/2019 06:50 DELIVERY PERSONNEL DELIVERY PERSONNEL: [id number] Delivery Doctor:: Lonny Quinonez MD Labor and Delivery Nurse:: Cindy Solano RNmanager patient Nurse:: Deborah Nogueira RN Project Development Leader/HOME THEATER INSTALLER: Alexa Angel, EXPERIENCE DESIGNER MATERNAL INFORMATION Delivery Anesthesia: Epidural Medications After Delivery: Pitocin Drip 20 Units/1000ml NSS Estimated Blood Loss (ml): 250 Maternal Complications: None LABOR SUMMARY EDC: 03/11/2019 00:00 No. Babies in Womb: 1 Attempted: No Labor Anesthesia: Epidural LABOR INFORMATION Reason for Induction: Not Applicable Onset of Labor: 03/17/2019 19:01 Complete Dilatation: 03/18/2019 04:33 Oxytocin: N/A Group B Beta Strep: Positive Antibiotics # of Doses: 3 Antibiotics Time of Last Dose: 0245 Name of Antibiotic Given: PCN Steroids Given: None Reason Steroids Not Administered: Not Applicable MEMBRANES Membranes Rupture Method: Spontaneous Rupture of Membranes: 03/17/2019 23:32 Length of Rupture (hr): 5.52 Amniotic Fluid Color: Clear Amniotic Fluid Amount: Scant Amniotic Fluid Odor: Normal STAGES OF LABOR Stage 1 hr: 9 Stage 1 min: 32 Stage 2 hr: 0 Stage 2 min: 30 Stage 3 hr: 0 Stage 3 min: 3 Total Time in Labor hr: 10 Total Time in Labor min: 5 VAGINAL DELIVERY Episiotomy: None Laceration #1: Perineal Laceration Extension #1: N/A Laceration #2: Perineal Laceration Extension #2: N/A Laceration #3: None Laceration Extension #3: N/A Laceration Repair: Yes Laceration Repair Note: The two small lacerations repaired with on 3-0 chromic each Sponge Count Correct: N/A Sharps Count Correct: Yes CSECTION DELIVERY Primary Indication: N/A Secondary Indication: N/A CSection Urgency: N/A CSection Incidence: N/A Labor: N/A Elective: N/A CSection Incision: N/A BABY A INFORMATION Infant Delivery Date/Time: 03/18/2019 05:03 Method of Delivery: Vaginal Born in Route : No : N/A Forceps: N/A Vacuum Extraction: N/A Shoulder Dystocia : No PRESENTATION/POSITION BABY A Presentation: Cephalic Cephalic Presentation: Vertex Vertex Position: Right Occipital Anterior Breech Presentation: N/A PLACENTA INFORMATION BABY A Placenta Delivery Time : 03/18/2019 05:06 Placenta Method of Delivery: Spontaneous Placenta Status: Delivered SCORES BABY A Heart Rate 1 min: >100 bpm Resp Effort 1 min: Good Cry Reflex Irritability 1 min: Cough or Sneeze or Pulls Away Muscle Tone 1 min: Active Motion Color 1 min: Blue/Pale Resuscitation Effort 1 min: Tactile Stimulation SCORE 1 MIN: 8 Heart Rate 5 min: >100 bpm Resp Effort 5 min: Good Cry Reflex Irritability 5 min: Cough or Sneeze or Pulls Away Muscle Tone 5 min: Active Motion Color 5 min: Body [place], Extremities Blue Resuscitation Effort 5 min: Tactile Stimulation SCORE 5 MIN: 9 INFORMATION BABY A Gestational Age at Delivery: 41.0 Gestational Status: Late Term- 41- 41.6 Weeks Infant Outcome : Liveborn Infant Condition : Stable Infant Sex: Female IDENTIFICATION BABY A Infant Verification Date/Time: 03/18/2019 05:20 ID Band Number: [id number] Mother's Name Verified: Yes Infant RN Verifying : [place] Additional Verifying Personnel: Lattibeaudeir WEIGHT/LENGTH BABY A Birthweight (gm): 3515 Weight (lb): 7 Infant Weight (oz): 12 Infant Length (in): 20.50 Length (cm): 52.07 CORD INFORMATION BABY A No. Cord Vessels: 3 Nuchal Cord : N/A Cord Blood Taken: Yes-For Eval (Mom's Blood Type - or O+) Infant Suction: Mouth; Nose ASSESSMENT BABY A Complications: None Physical Findings at Delivery: Molding of the Head Respirations: Appears Normal Skin to Skin: Yes Resource Program Teacher/ALS Called : No Care By: SMacey Nogueira, C Transferred To: Remains with Mother BABY B INFORMATION : N/A SIGNATURES Signature: with User ID: [email or web address]
[2019-03-18] MEDS ORDERED: IBUPROFEN 800 MG TABLET ONE (06:54)
[2019-03-18] MEDS: IBUPROFEN 800 MG TABLET PO SCH ×3 (06:57→20:59)
--- NOTE | 2019-03-18 07:25 | Warning Signs in Babies ---
VOD Warning Signs Datetime Report Generated by [facility]: 03/18/2019 07:24 VOD#[id number] -Warning Signs in Babies: Viewed with Parent(s)/Family (03/18/2019 07:23:Harley Chapa RN)
[2019-03-18] MEDS ORDERED: SENNOSIDES/DOCUSATE 8.6-50 MG 1 EACH TABLET ONE (09:43)
[2019-03-18] MEDS ORDERED: PRENATAL VITAMIN W DHA CAPSULE PO ONE (09:43)
[2019-03-18] MEDS ORDERED: DOCUSATE SODIUM 100 MG CAPSULE ONE (09:44)
[2019-03-18] MEDS ORDERED: FAMOTIDINE 20 MG TABLET ONE (09:44)
[2019-03-18] MEDS ORDERED: FERROUS SULFATE 325 MG TABLET PO ONE (09:44)
[2019-03-18] MEDS: FAMOTIDINE 20 MG TABLET PO SCH ×2 (09:46→20:59)
[2019-03-18] MEDS: FERROUS SULFATE 325 MG TABLET PO SCH ×2 (09:46→17:12)
[2019-03-18] MEDS: SENNOSIDES/DOCUSATE 8.6-50 MG 1 EACH TABLET PO SCH (09:47)
[2019-03-18] MEDS: DOCUSATE SODIUM 100 MG CAPSULE PO SCH ×2 (09:47→17:12)
[2019-03-18] MEDS: PRENATAL VITAMIN W DHA CAPSULE PO SCH (09:49)
[2019-03-18] MEDS: ACETAMINOPHEN WITH CODEINE #3 TABLET PO PRN (20:39)
[2019-03-19] MEDS: IBUPROFEN 800 MG TABLET PO SCH ×3 (05:59→21:51)
[2019-03-19 07:01] LABS: HEMATOCRIT 32.2 % (36.0-47.0); HEMOGLOBIN 10.9 g/dL (12.0-15.5); MEAN CORPUSCULAR HEMOGLOBIN 28.4 pg (27.0-33.4); MEAN CORPUSCULAR HGB CONC 33.8 g/dL (32.0-36.0); MEAN CORPUSCULAR VOLUME 84 fl (80-97); PLATELET COUNT 169 10^3/uL (150-450); RED BLOOD COUNT 3.84 10^6/uL (3.72-5.28); RED CELL DISTRIBUTION WIDTH 19.9 % (11.5-14.0); WHITE BLOOD COUNT 13.4 10^3/uL (4.0-10.5)
[2019-03-19] MEDS: FERROUS SULFATE 325 MG TABLET PO SCH ×2 (09:25→17:41)
[2019-03-19] MEDS: DOCUSATE SODIUM 100 MG CAPSULE PO SCH ×2 (09:25→17:41)
[2019-03-19] MEDS: SENNOSIDES/DOCUSATE 8.6-50 MG 1 EACH TABLET PO SCH (09:25)
[2019-03-19] MEDS: PRENATAL VITAMIN W DHA CAPSULE PO SCH (09:25)
[2019-03-19] MEDS: FAMOTIDINE 20 MG TABLET PO SCH ×2 (09:27→21:50)
--- NOTE | 2019-03-19 10:28 | PDOC PROGRESS REPORT ---
Subjective-OB Progress Note for:: 03/19/19 Subjective: 18yo G1 now P1 s/p ppd1. Ambulating, voididng and without difficulty. Pain well controlled with medication. No concerns at this time. Physical Exam (OB) Vital Signs: Temp Pulse Resp BP Pulse Ox 98.3 F 70 18 125/68 98 03/19/19 07:50 03/19/19 07:50 03/19/19 07:50 03/19/19 07:50 03/19/19 07:50 Intake & Output 03/18/19 03/19/19 03/20/19 06:59 06:59 06:59 Intake Total 1092 500 480 Balance 1092 500 480 Weight 87.3 kg - General General Appearance: Appears well In distress: None - PIH/Pre-Eclampsia DTR's: 1 + Clonus: Negative Headache: Absent Epigastric Pain: No Visual Changes: No - Episiotomy/Laceration Site Condition: Well Approximated - Lochia Lochia Amount: Small 10-25 ml Lochia Color: Rubra/Red - Abdomen Description: Soft, Round Hernia Present: No Fundal Description: Firm Fundal Height: u/u - u/2 - Respiratory Respiratory Status: No respiratory distress - Extremities Upper extremity: Normal inspection Lower extremities: Normal inspection - Neurological Cognition: Normal Orientation: AAOx4 - Psychological Associated symptoms: Normal affect, Normal mood Objective-Diagnostic Laboratory: 03/19/19 06:35 03/19/19 06:35 WBC 13.4 H RBC 3.84 Hgb 10.9 L Hct 32.2 L MCV 84 MCH 28.4 MCHC 33.8 RDW 19.9 H Plt Count 169 Assessment and Plan(PN) - Assessment and Plan (1) Perineal laceration during delivery, delivered Is this a current diagnosis for this admission?: Yes Plan: monitor for s/s of infection (2) Anemia complicating , third trimester Is this a current diagnosis for this admission?: Yes Plan: increase dietary iron and FeSO4 BID (3) Gestational diabetes mellitus (GDM) affecting first Is this a current diagnosis for this admission?: Yes Plan: routine pp care, will need fasting blood sugar at the visit. (4) Normal vaginal delivery Is this a current diagnosis for this admission?: Yes Plan: routine pp care - Time Spent with Patient Time with patient: Less than 15 minutes Medications reviewed and adjusted accordingly: Yes - Disposition Anticipated Discharge: Home Within: within 24 hours
[2019-03-19] MEDS: ACETAMINOPHEN WITH CODEINE #3 TABLET PO PRN (21:52)
[2019-03-20] MEDS: IBUPROFEN 800 MG TABLET PO SCH ×2 (06:02→13:28)
[2019-03-20 08:30] VITALS: BP 112/70
--- NOTE | 2019-03-20 09:07 | PDOC DISCHARGE SUMMARY ---
Final Diagnosis Discharge Date: 03/20/19 - Final Diagnosis (1) Anemia complicating , third trimester Is this a current diagnosis for this admission?: Yes (2) Gestational diabetes mellitus (GDM) affecting first Is this a current diagnosis for this admission?: Yes (3) Normal vaginal delivery Is this a current diagnosis for this admission?: Yes (4) Perineal laceration during delivery, delivered Is this a current diagnosis for this admission?: Yes Discharge Data - Discharge Medication Home Medications: Pnv No.95/Ferrous Fum/Folic AC [ Multivitamin Tablet] 1 tab PO DAILY 02/12/19 Reason(s) for Admission: Onset of Labor Procedures: NST Intrapartum Procedure(s): Spontaneous Vaginal Delivery Complication(s): Laceration-Perineal Laceration-Degree: 1st - Diagnosis Test Laboratory: Temp Pulse Resp BP Pulse Ox 97.9 F 84 15 112/70 99 03/20/19 07:52 03/20/19 07:52 03/20/19 07:52 03/20/19 07:52 03/20/19 07:52 03/19/19 06:35 RBC 3.84 Hgb 10.9 L Hct 32.2 L - Discharge information/Instructions Discharge Activity: Balance Activity w/Rest, Pelvic Rest Discharge Diet: Regular Disposition: HOME, SELF-CARE Follow up with: [facility] in: 4, Weeks
[2019-03-20] MEDS: FAMOTIDINE 20 MG TABLET PO SCH (09:34)
[2019-03-20] MEDS: DOCUSATE SODIUM 100 MG CAPSULE PO SCH (09:34)
[2019-03-20] MEDS: PRENATAL VITAMIN W DHA CAPSULE PO SCH (09:34)
[2019-03-20] MEDS: SENNOSIDES/DOCUSATE 8.6-50 MG 1 EACH TABLET PO SCH (09:34)
[2019-03-20] MEDS: FERROUS SULFATE 325 MG TABLET PO SCH (09:34)
== END 2019-03-20 14:28 | disposition home or self-care (01) | DRG 807 ==
LOC: LR 18:06 → 2S 03-18 10:10
PROVIDERS: ADMIT Obstetrics & Gynecology; ATTEND Obstetrics & Gynecology
PROC: 4A1HXCZ Monitoring of Products of Conception, Cardiac Rate, External Approach (ICD-10-PCS; 2019-03-17)
PROC: 10E0XZZ Delivery of Products of Conception, External Approach (ICD-10-PCS; principal; 2019-03-18)
PROC: 0HQ9XZZ Repair Perineum Skin, External Approach (ICD-10-PCS; 2019-03-18)
DX: O99.824 Streptococcus B carrier state complicating childbirth (principal); Z37.0 Single live birth; O70.0 First degree perineal laceration during delivery; O99.02 Anemia complicating childbirth; D64.9 Anemia, unspecified; O24.429 Gestational diabetes mellitus in childbirth, unspecified control; Z3A.41 41 weeks gestation of pregnancy
CPT/HCPCS: 36415; 85027; 86850; 86900; 86901; 90707; 94760; J2405; J2540; J2590; J3010; J3490